=== PATIENT | male | born 1965 | race Caucasian/White ===

== ENCOUNTER 2017-01-28 21:18 | Inpatient (IN) | payer OTHER ==
--- NOTE | ~2017-01-28 | DS ---
Unit #: [id number] #: [id number] Patient: KAMALJIT MADRIGAL [id number] [place] [address] [id number] MR#: [id number] NAME: KAMALJIT MADRIGAL ROOM: [facility] Age: 51 Sex: M Admission Date: 01/28/2017 : 1965 Discharge Date: 01/31/2017 Attending Physician: Sean Breaux M.D. Primary Care Physician: Primary Care Physician No DISCHARGE SUMMARY REASON FOR ADMISSION The patient is a 51-year-old white male, who was admitted to the [facility] unit with a history of depression, hallucinogen and opioid use. HOSPITAL COURSE The patient was admitted to the [facility] unit and placed on routine detoxification protocol for opioids. There was concern about possible detox from alcohol. Also, the patient did have an episode of confusion, but attributed this to having received Benadryl, Phenergan, and Ativan all in rapid succession. These symptoms had rapidly resolved by 01/31/2017, and on that date, the patient requested discharge stating that he would return to the [employer] in which he had previously been employed and had a small room. Discharge was ordered. FINAL DIAGNOSES 1. Major depressive disorder, recurrent, moderate. 2. Hallucinogen use disorder. 3. Opioid use disorder. 4. Hepatitis C. DISPOSITION ON DISCHARGE The patient is discharged on the following medications; Cymbalta 60 mg daily for depression, Wellbutrin XL 150 mg q.a.m. for depression, Neurontin 300 mg q.i.d. for chronic pain, Seroquel 50 mg at bedtime for mood stabilization. No dietary or physical restrictions were placed upon the patient at the time of discharge. FOLLOWUP Followup will take place through the auspices of community mental health resources. PROGNOSIS The patient's prognosis is considered fair. Dictated by... Sean Breaux M.D. FLAQUITA/felix TD: 02/01/2017 05:31 JOB #: [id number] Unit #: [id number] #: [id number] Patient: KAMALJIT MADRIGAL DISCHARGE SUMMARY X Sean Breaux MD X DISCHARGE SUMMARY
--- NOTE | ~2017-01-28 | A ---
[facility] Nutrition Therapy DATE: 01/29/17 Patient: KAMALJIT MADRIGAL Physician: JOHNATHAN Address: [facility] [place] Room/Bed: [address], Zip: [place] [address] Admit Date: 01/28/17 Date of : [birth year] Height: 6 0 Weight: 134 61.58200 NUTRITIONAL ASSESSMENT: REASON: NUTRITIONAL RISK POINT- UNINTENTIONAL WEIGHT LOSS PATIENT ADMITTED FOR SI AND SUBSTANCE ABUSE PMH: HEP B & C, LONG HX POLYSUBSTANCE ABUSE Anthropometrics: HT: 5'10", WT: 135#, BMI: 19.5, %IBW: 81 Labs: 01/29/17- AST: 275, ALT: 394 Meds: DETOX PROTOCOL Assessment: CHART REVIEWED, EVENTS NOTED. PATIENT IS A 51 Y/O MALE ADMITTED FOR SI AND SUBSTANCE ABUSE. PATIENT IS CURRENTLY UNEMPLOYED, HOMELESS, SMOKES 1 PPD, HAS DAILY SPICE USE, WEEKLY ETOH AND CANNABIS USE, AND A HX OF METH, XANAX, HEROIN, AND COCAINE ABUSE. IT IS NOTED THAT PATIENT OVERDOSED ON HEROIN 10/2016. PATIENT STATES HIS APPETITE FLUCTUATES, HE HAS HAD A 15# WEIGHT LOSS SINCE 10/2016, AND HE HAS NOT BEEN SLEEPING. WEIGHT HX PER [employer] SHOWS STABLE WEIGHTS OF 135-140# FOR LAST 2 YEARS. CURRENT PO INTAKES ARE NO AVAILABLE. PATIENT HAS HAD RECENT INPATIENT ADMISSIONS TO THIS FACILITY, AND HAS A HX OF INPATIENT PSYCH AND CHEMICAL DEPENDENCY TREATMENT. IT IS ALSO NOTED THAT PATIENT HAS BEEN NON-COMPLIANT WITH HIS MEDICATIONS PRIOR TO ADMIT. THERE ARE NO SKIN OR GI ISSUES NOTED ATT. PATIENT IS ON A REGULAR DIET WITH NO CAFFEINE. Dx: INADEQUATE NUTRIENT INTAKE R/T CURRENT CONDITION, SUBSTANCE ABUSE AEB SELF-REPORTED WEIGHT LOSS AND DECREASED APPETITE, NUTRITIONAL RISK POINT, <90% IBW Intervention: 1. REGULAR DIET WITH NO CAFFEINE, 2. MEDS PER MD, 3. DETOX, 4. PSYCH Monitoring, Evaluation and Goals: 1. ADEQUATE PO INTAKES >50% OF MEALS 2. PREVENT, CORRECT MICRO/MACRO NUTRIENT DEFICIENCIES 3. PREVENT FURTHER WEIGHT LOSS MONITOR: WEIGHTS, LABS, PO/FLUID INTAKES Recommendations: 1. CONTINUE REGULAR DIET WITH NO CAFFEINE. WILL INCREASE ENTREES TO LARGE PORTIONS TO ENSURE PATIENT RECEIVES ADEQUATE KCAL AND PROTEIN INTAKES 2. ENCOURAGE ADEQUATE PO AND FLUID INTAKES [facility] Nutrition Therapy DATE: 01/29/17 Patient: KAMALJIT ROHAN Physician: JOHNATHAN Address: [facility] Room/Bed: [address], Zip: [place] [address] Admit Date: 01/28/17 Date of : [birth year] Height: 6 0 Weight: 134 61.24618 3. IF PO INTAKES FALL BELOW 50% OF MEALS PLEASE ORDER ENSURE BID TO PROMOTE ADEQUATE KCAL AND PROTEIN INTAKES RD TO F/U PER PROTOCOL AND PRN R/T PATIENT MILDLY COMPROMISED Respectfully, NATHALY WOODRUFF RD, LD [employer] [facility] [employer] cc: client file
--- NOTE | ~2017-01-28 | HP ---
Unit #: [id number] #: [id number] Patient: KAMALJIT MADRIGAL [id number] [place] [address] [id number] MR#: [id number] NAME: KAMALJIT MADRIGAL ROOM: [facility] Age: 51 Sex: M Admission Date: 01/28/2017 : 1965 Attending Physician: Sean Breaux M.D. Admitting Physician: Sean Breaux M.D. Primary Care Physician: Primary Care Physician No HISTORY AND PHYSICAL HISTORY OF PRESENT ILLNESS Kamaljit is a 51 year old admitted to [facility] because of his polysubstance abuse. He has had other admissions to this facility. PAST MEDICAL HISTORY 1. Long history of polysubstance abuse. 2. Hepatitis C. 3. History of hepatitis B. PAST SURGICAL HISTORY Low back. ALLERGIES Keflex (rash). SOCIAL HISTORY Smokes 1 pack per day. Drinks alcohol socially. Admits to a history of illicit substance abuse to include spice. FAMILY HISTORY Medically noncontributory. REVIEW OF SYSTEMS CONSTITUTIONAL: No fever or chills. HEENT: Denies any sore throat, ear pain or runny nose. CARDIOVASCULAR: Denies chest pain, irregular heart rhythm or palpitations. CHEST: Denies shortness of breath or cough. No hemoptysis. GASTROINTESTINAL: Denies nausea, vomiting, diarrhea or chronic constipation. ENDOCRINE: Denies history of increased thirst or urination. No recent significant weight loss or gain. GENITOURINARY: Denies dysuria, frequency, or hematuria. SKIN: Denies any rashes. HEMATOLOGIC: Denies history of increased bleeding or bruising. MUSCULOSKELETAL: Denies any hot, swollen joints. No generalized muscle pain. NEUROLOGIC: Denies problems with vision or speech. No frequent, severe headaches. No numbness, tingling or weakness in any extremities. Denies loss of bladder or bowel control. CURRENT MEDICATIONS Detox protocol. Unit #: [id number] #: [id number] Patient: KAMALJIT MADRIGAL PHYSICAL EXAMINATION GENERAL: Alert, well-nourished, in no apparent distress. VITAL SIGNS: Blood pressure 146/100, heart rate 82, respirations 16, temperature 98.6. WEIGHT: 135. HEIGHT: 6 feet 0 inches. SKIN: Warm and dry without rash or lesion. HEENT: Normocephalic. TMs not viewed. Oral and nasal passages clear. Conjunctivae clear. PERRLA. EOMs intact. NECK: Supple without lymphadenopathy or thyromegaly. HEART: Regular rate and rhythm without murmur. LUNGS: Clear. ABDOMEN: Soft, nontender. : Not done. EXTREMITIES: No evidence of cyanosis, clubbing or edema. Moves all without focal deficit. NEUROLOGICAL: Grossly within normal limits. Cranial Nerves: II: Visual daniel are intact. III, IV AND : Extraocular movements are intact. Pupils are equal, round and reactive to light. V: Facial sensation is grossly normal. VII: Facial movements and expression are normal. VIII: Auditory acuity grossly intact. IX, X: Uvula is midline. Phonation is normal. XI: Patient shrugs shoulders and turns head normally. XII: Tongue protrudes in the midline. Sensory and Motor Function: Sensory and motor sensation is grossly normal. Motor: moves all extremities well. Coordination: Gait is normal. Deep Tendon Reflexes: Intact. IMPRESSION Psychiatric admission. RECOMMENDATIONS PSYCHIATRIC: Per psychiatrist. MEDICAL: See no contraindications to participate in facility's activities. MEDICAL PROGNOSIS Good. MEDICAL CONDITION Stable. Dictated by... Anita Lewis P.A.-C. for Breezy Cagle/sheryl TD: 01/29/2017 17:26 JOB #: [id number] Unit #: [id number] #: [id number] Patient: KAMALJIT MADRIGAL HISTORY AND PHYSICAL X Anita Lewis X HISTORY AND PHYSICAL
--- NOTE | ~2017-01-28 | PA ---
Unit #: [id number] #: [id number] Patient: KAMALJIT MADRIGAL [id number] [facility] [address] [place] [address] [id number] I MR#: [id number] NAME: KAMALJIT MADRIGAL ROOM: [facility] Age: 51 Sex: M Admission Date: 01/28/2017 : 1965 Date of Assessment: 01/29/2017 Attending Physician: Sean Breaux M.D. Admitting Physician: Sean Breaux M.D. Primary Care Physician: Primary Care Physician No PSYCHIATRIC ASSESSMENT IDENTIFYING INFORMATION The patient is a 51-year-old white male admitted related to suicidal ideation related to his current homeless situation. INFORMANT(S) Patient and chart. RELIABILITY Fair. CHIEF COMPLAINT None given. HISTORY OF PRESENT ILLNESS The patient is a 51-year-old male admitted after he had presented to this facility voicing positive suicidal ideation related to his current homeless situation. The patient also reports that he has been using spice and has a history of opioid dependence. He is hepatitis C positive as related thereto. The patient had a home which had been provided by [employer] but reports that he allowed the place to become overrun with other homeless individuals and he had to walk away from the apartment rendering him homeless. He has been off his psychotropic medications for some time. He had previously been prescribed Cymbalta, Wellbutrin, Neurontin and Seroquel by Dr. Parker, his previous psychiatrist at this facility. When seen today, the patient continues to endorse positive hopelessness and suicidal ideation. For a more complete history of present illness, please refer to previous dictated notes. PAST PSYCHIATRIC HISTORY Reviewed, no changes. FAMILY HISTORY Reviewed, no changes. SOCIAL HISTORY Reviewed, no changes. MEDICAL HISTORY Reviewed, no changes. MEDICATION HISTORY 1. Cymbalta. 2. Wellbutrin XL. Unit #: [id number] #: [id number] Patient: KAMALJIT MADRIGAL 3. Neurontin. 4. Seroquel. ALLERGIES Keflex. MENTAL STATUS EXAM At this time, reveals the patient to be a well-developed, well-nourished white male appearing stated age. He is in no apparent physical distress at the time of examination. He is awake, alert, alert, oriented in all spheres. His mood is mildly dysphoric. His affect is blunted. Speech is generally relevant and coherent. There are no gross deficits in memory or cognition noted. Intelligence is judged to be in the average range based on fund of knowledge. The patient is cooperative throughout the interview. He is currently endorsing positive suicidal ideation. He denies homicidal ideation. He denies any psychotic symptoms. His judgement and insight appear to be intact. ASSETS AND LIABILITIES Patient's assets to be assets. Liabilities, lack of resources. ADMITTING DIAGNOSES 1. Major depressive disorder, recurrent, moderate. 2. Hallucinogen use disorder. 3. Opioid use disorder. 4. Hepatitis C. PSYCHIATRIC PLAN/TREATMENT GOALS The patient remains hospitalized for safety and stabilization. We will restart previously prescribed medications including Cymbalta, Wellbutrin, Neurontin and Seroquel. The patient will participate in appropriate engel and milieu activities. We will watch for any signs of opioid withdrawal. ESTIMATED LENGTH OF STAY Three to five days with followup to take place through the auspices of community mental health resources. Dictated by... Sean Breaux M.D. FLAQUITA/sheryl TD: 01/29/2017 15:07 JOB #: [id number] PSYCHIATRIC ASSESSMENT X Sean Breaux MD X PSYCHIATRIC ASSESSMENT
--- NOTE | ~2017-01-28 | PN ---
Unit #: [id number] #: [id number] Patient: KAMALJIT MADRIGAL [id number] [facility] [address] [place] [address] [id number] MR#: [id number] NAME: KAMALJIT MADRIGAL ROOM: [facility] Age: 51 Sex: M Admission Date: 01/28/2017 : 1965 Attending Physician: Sean Breaux M.D. Admitting Physician: Sean Breaux M.D. Primary Care Physician: Primary Care Physician Astrid DAVIS PROGRESS NOTES DATE 01/30/2017 DISCUSSION The patient seems brighter today. We will get an ammonia level and consider medical consult related to the patient's elevated liver enzymes but the patient is pushing for a.m. discharge. Dictated by... Sean Breaux M.D. CB/sheryl TD: 01/30/2017 16:19 JOB #: [id number] [facility] PROGRESS NOTES X Sean Breaux MD X PROGRESS NOTE
[2017-01-29 09:42] LABS: BASOPHIL# 0.1 X10e3 (0-0.3); BASOPHIL% 1.2 % (0-2.5); EOSINOPHIL# 0.2 X10e3 (0-0.7); EOSINOPHIL% 4.2 % (0.0-7.0); HEMATOCRIT 41.4 % (38.0-50.0); HEMOGLOBIN 13.6 gm/dL (13.0-16.0); LYMPHOCYTE# 1.5 X10e3 (1.0-3.5); LYMPHOCYTE% 31.1 % (17.0-45.0); MEAN CELL VOLUME 92.7 FL (83-96); MEAN CORPUSCULAR HEMOGLOBIN 30.4 PG (28-34); MEAN CORPUSCULAR HGB CONC 32.8 g/dL (30-36); MEAN PLATELET VOLUME 8.5 FL (6.5-11.5); MONOCYTE# 0.8 X10e3 (0-1.0); NEUTROPHIL# 2.2 X10e3 (1.5-7.1); NEUTROPHIL% 47.5 % (40-75); PLATELET COUNT 203 X10e3 (140-420); RED BLOOD COUNT 4.46 X10e (3.90-5.60); RED CELL DISTRIBUTION WIDTH 13.8 % (11.0-15.5); WHITE BLOOD COUNT 4.7 X10e3 (4.0-10.5)
[2017-01-29 09:53] LABS: DIFF IND NO
[2017-01-29 10:01] LABS: THYROID STIMULATING HORMONE 0.9 uIU/ml (0.34-5.60)
[2017-01-29 10:08] LABS: FREE THYROXIN (T4) 1.02 ng/dL (0.58-1.64)
[2017-01-29 10:46] LABS: ALBUMIN SERUM 4.3 g/dL (3.5-5.0); ALKALINE PHOSPHATASE 57 U/L (32-92); ALT (SGPT) 394 U/L (10-40); AST (SGOT) 275 U/L (10-42); BILIRUBIN,TOTAL 1.2 mg/dL (0.2-2.0); BLOOD UREA NITROGEN 14 mg/dL (9-23); CALCIUM SERUM 9.5 mg/dL (8.4-10.2); CARBON DIOXIDE 29 mmol/L (22-31); CHLORIDE 103 mmol/L (100-111); GLOM FILT RATE Estimated ABOVE60 mL/min (>60); GLUCOSE FASTING 83 mg/dL (70-110); POTASSIUM 4.4 mmol/L (3.5-5.1); PROTEIN TOTAL SERUM 7.1 g/dL (6.0-8.3); SODIUM 139 mmol/L (135-145)
[2017-01-30 09:38] LABS: URINE APPEARANCE CLEAR; URINE BILIRUBIN NEG (NEG); URINE BLOOD NEG (NEG); URINE COLOR YELLOW; URINE GLUCOSE NEG (NEG); URINE KETONE NEG (NEG); URINE LEUKOCYTE ESTERASE NEG (NEG); URINE NITRATE NEG (NEG); URINE PROTEIN NEG (NEG); URINE SPECIFIC GRAVITY 1.012 (1.003-1.035); URINE UROBILINOGEN 0.2 MG/DL (NEG)
[2017-01-30 10:41] LABS: AMPHETAMINE NEG (NEG); BARBITURATES NEG (NEG); BENZODIAZEPINES NEG (NEG); COCAINE NEG (NEG); MARIJUANA POS (NEG); OPIATES NEG (NEG); TRICYCLIC ANTIDEPRESSANTS NEG (NEG); U METHADONE NEG (NEG)
== END 2017-01-31 16:30 | disposition home or self-care (01) | DRG 885 ==
LOC: P1E 21:18
PROVIDERS: Specialist
DX: F33.1 Major depressive disorder, recurrent, moderate (principal); F16.20 Hallucinogen dependence, uncomplicated; F10.20 Alcohol dependence, uncomplicated; B19.20 Unspecified viral hepatitis C without hepatic coma; Z88.1 Allergy status to other antibiotic agents; F17.200 Nicotine dependence, unspecified, uncomplicated; Z86.19 Personal history of other infectious and parasitic diseases
CPT/HCPCS: 80053; 80307; 81003; 82140; 84439; 84443; 85025; 86592